=== PATIENT | female | born 1945 | race Caucasian/White ===

== ENCOUNTER 2017-01-16 06:09 | Inpatient (IN) | payer OTHER ==
[2016-10-27 13:14] VITALS: BMI 29.0
--- NOTE | 2016-10-27 13:54 | PAT Medication Instructions ---
Service Date Oct 27, 2016. Current Home Medication List Amlodipine (Norvasc), 5 MG PO QAM Atenolol (Tenormin), 100 MG PO QAM Atorvastatin (Atorvastatin Calcium), 20 MG PO HS Spironolactone (Spironolactone), 25 MG PO QAM Medication Instructions For Your Scheduled Surgery - Hold the following medications the morning of surgery: Spironolactone (Spironolactone), 25 MG PO QAM - Take the following medications the morning of surgery with a sip of water: Amlodipine (Norvasc), 5 MG PO QAM Atenolol (Tenormin), 100 MG PO QAM - Take the following medications as scheduled the night before surgery: Atorvastatin (Atorvastatin Calcium), 20 MG PO HS If you have any questions please call us at [phone] or [phone] ( [facility]) or [phone]
--- NOTE | 2016-10-27 14:34 | DIAGNOSTIC IMAGING REPORT ---
CHEST PREADMISSION(PA/LAT) CLINICAL HISTORY: PAT preoperative evaluation COMPARISON STUDY: No previous studies for comparison. FINDINGS: The bones soft tissues and hemidiaphragms are normal. The cardiomediastinal silhouette is normal. The lungs are clear. The pulmonary vasculature is normal. IMPRESSION: Negative chest. Electronically signed by: Erwin Beck M.D. 10/27/2016 2:33 PM
[2016-10-27 14:45] LABS: BASO % 0.5 %; BASO ABS # 0.04 K/uL (0-0.2); COMPLETE YES; EOS % 1.5 %; IG% 0.1 %; LYMPH % 17.1 %; LYMPH ABS # 1.46 K/uL (1.2-3.4); MEAN CELL VOLUME 94.2 fL (80-100); MEAN CORPUSCULAR HEMOGLOBIN 31.4 pg (25-34); MEAN CORPUSCULAR HGB CONC 33.3 g/dl (32-36); MONO % 10.8 %; PLATELET COUNT 200 K/uL (130-400); RED BLOOD COUNT 4.46 M/uL (4.2-5.4); WHITE BLOOD COUNT 8.53 K/uL (4.8-10.8)
[2016-10-27 14:58] LABS: PROTHROMBIN TIME (PATIENT) 10.7 SECONDS (9.0-12.0)
[2016-10-27 15:31] LABS: BUN/CREATININE RATIO 16.5 (10-20); CALCIUM 10.2 mg/dl (8.5-10.1); CREATININE 0.98 mg/dl (0.60-1.20); POTASSIUM 4.2 mmol/L (3.5-5.1)
[2016-10-30 08:30] LABS: URINE APPEARANCE CLEAR (CLEAR); URINE BILIRUBIN NEG (NEG); URINE COLOR YELLOW; URINE NITRITE NEG (NEG); URINE SPECIFIC GRAVITY 1.026 (1.000-1.030); UROBILINOGEN NEG (NEG)
[2016-10-30 08:34] LABS: MANUAL MICROSCOPIC REQUIRED? NO; REVIEW REQ? NO
[2016-12-26 12:21] LABS: BASO % 0.6 %; BASO ABS # 0.04 K/uL (0-0.2); COMPLETE YES; EOS % 1.8 %; IG% 0.1 %; LYMPH % 37.6 %; LYMPH ABS # 2.55 K/uL (1.2-3.4); MEAN CELL VOLUME 96.6 fL (80-100); MEAN CORPUSCULAR HEMOGLOBIN 32.4 pg (25-34); MEAN CORPUSCULAR HGB CONC 33.6 g/dl (32-36); MEAN PLATELET VOLUME 12.5 fL (7.4-10.4); MONO % 9.4 %; NEUT % 50.5 %; PLATELET COUNT 220 K/uL (130-400); RED BLOOD COUNT 4.35 M/uL (4.2-5.4); WHITE BLOOD COUNT 6.79 K/uL (4.8-10.8)
[2016-12-26 12:26] LABS: PROTHROMBIN TIME (PATIENT) 10.7 SECONDS (9.0-12.0)
[2016-12-26 12:56] LABS: BUN/CREATININE RATIO 16.9 (10-20); CALCIUM 9.7 mg/dl (8.5-10.1); POTASSIUM 4.1 mmol/L (3.5-5.1)
--- NOTE | 2017-01-15 14:16 | HISTORY & PHYSICAL EXAMINATION ---
DATE OF ADMISSION: 01/16/2017 CHIEF COMPLAINT: Primary osteoarthritis of the right knee. HISTORY OF PRESENT ILLNESS: Mackenzie is a pleasant 71-year-old female who has been dealing with chronic right knee pain. I did do a right knee arthroscopy on her over a year ago that helped some with her meniscal symptoms but unfortunately her arthritis continued to progress. After failing over a year of conservative treatment, she has elected to proceed with a right total knee arthroplasty. She understands the risks, benefits, alternatives to the procedure and has elected to proceed. PAST MEDICAL HISTORY: Significant for hyperlipidemia and hypertension. PAST SURGICAL HISTORY: Significant for hernia repair, a right knee arthroscopy about a year and a half ago. ALLERGIES: CORTISONE AND MOST NARCOTICS. MEDICATIONS: Include amlodipine, atenolol, spironolactone, atorvastatin. FAMILY HISTORY: Noncontributory. SOCIAL HISTORY: The patient is , rarely drinks. She lives in a single level ranch house with her and ambulates without assistance. REVIEW OF SYSTEMS: She complains of right knee pain. All other pertinent review of systems are negative. PHYSICAL EXAMINATION: GENERAL: She is awake, alert and oriented x3. She is in no apparent distress. She is very pleasant. HEENT: Pupils are equal, round and reactive to light. Extraocular motion intact. Oral mucosa is pink and moist. HEART: Regular rate per radial pulse. LUNGS: [place] symmetrically bilaterally with no audible breath sounds. ABDOMEN: Soft, nontender, nondistended. MUSCULOSKELETAL: On physical examination of the right knee, she has a slight varus deformity. All of her pain is located over the distal medial femoral condyle and along the medial joint line. She has no effusion. She has good motion from 0-125 degrees. IMAGING DATA: X-rays of the right knee do show osteoarthritis mostly involving the medial compartment of the knee with some medial-sided osteophyte formation and some joint space narrowing. IMPRESSION: Primary osteoarthritis of the right knee. PLAN: We will proceed with a Biomet Vanguard right total knee arthroplasty. Postoperatively, she will be admitted for postoperative medical management and started on a 325 mg twice a day for DVT prophylaxis. She will likely be discharged to home with the [facility] on postop day #2.
[~2017-01-16] VITALS: Ht 152.4 cm; Wt 68.5 kg
[2017-01-16] VITALS (11 sets, daily range): BP systolic 99–162; BP diastolic 60–76; PULSE 55–68; TEMP 36.3–36.7; O2SAT 97–100; Ht 152.4 cm; Wt 68.5 kg
[~2017-01-16 06:09] MED LIST: ACETAMINOPHEN 500 MG TAB PO SCH; AMLO-110 PO; ATEN50TA8 PO; CEFAZOLIN 2000 MG/60 ML D5W 60 ML IV SCH; FAMOTIDINE 20 MG TAB PO SCH; GABAPENTIN 300 MG CAP PO SCH; LACTATED RINGER'S 1000ML 1,000 ML IV SCH; LACTATED RINGER'S 1000ML 500 ML IV ONE; LPT/20 PO; ROPIVACAINE 5MG/ML 30 ML 150 MG, BUPIVACAINE/EPINEPHR 0.5% MPF 30 ML, KETOROLAC TROMETH... INFIL SCH; SPR25 PO
[2017-01-16] MEDS ORDERED: BUPIVACAINE 0.5 % 5 MG/1 ML PF 10ML VIAL ONE (06:13)
[2017-01-16] MEDS ORDERED: BUPIVACAINE 0.25% 30 ML VIAL ONE (06:14)
--- NOTE | 2017-01-16 06:36 | History & Physical Bridge Note ---
H&P Re-Evaluation Bridge Note: I have examined the patient, reviewed the History & Physical and in the interval since the performance of the History & Physical I have noted the following changes of clinical significance: No changes noted
[2017-01-16] MEDS: TRANEXAMIC ACID INJ 1,000 MG in SODIUM CHLORIDE 0.9% 100ML 100 ML IV SCH ×2 (06:58→11:33)
[2017-01-16] MEDS ORDERED: MIDAZOLAM HCL 1 MG/ML 2ML VIAL ONE (07:06)
[2017-01-16] MEDS ORDERED: FENTANYL CITRATE INJ 50 MCG/1 ML 2 ML VIAL ONE (07:06)
[2017-01-16] MEDS ORDERED: ORTHO JOINT ANESTHETIC ONE (07:16)
[2017-01-16] MEDS ORDERED: BACITRACIN 50000 UNIT VIAL ONE (07:16)
[2017-01-16] MEDS ORDERED: ONDANSETRON INJ 2 MG/ML 2 ML VIAL IV PRN ×2 (07:45→09:15)
[2017-01-16] MEDS ORDERED: EpHEDrine SULFATE INJ 50 MG/ML AMP IV PRN (07:45)
[2017-01-16] MEDS ORDERED: PHENYLEPHRINE 100MCG/ML 5ML SYR IV PRN (07:45)
[2017-01-16] MEDS ORDERED: ATROPINE SULFATE 0.1 MG/ML 5ML SYR IV PRN (07:45)
[2017-01-16] MEDS ORDERED: HYDROmorphone INJ 2 MG/ML SYR/VIAL IV PRN (07:45)
[2017-01-16] MEDS ORDERED: CISATRACURIUM BESYLATE IV SOLN 2 MG/ML 10 ML VIAL ONE (08:21)
[2017-01-16] MEDS ORDERED: LIDOCAINE HCL 2% 2 ML VIAL (20MG/ML) ONE (08:22)
[2017-01-16] MEDS ORDERED: PHENYLEPHRINE 100MCG/ML 5ML SYR ONE (08:22)
[2017-01-16] MEDS ORDERED: PROPOFOL IV EMULSION 10 MG/ML 20 ML VIAL IV ONE (08:22)
[2017-01-16] MEDS ORDERED: OXYCODONE HCL IR 5 MG TAB (IMMEDIATE RELEASE) PO PRN (09:15)
[2017-01-16] MEDS ORDERED: SILVER SULFADIAZINE 1% CR 50 GM JAR EXT PRN (09:15)
[2017-01-16] MEDS ORDERED: BISACODYL 10 MG SUPP PR PRN (09:15)
[2017-01-16] MEDS ORDERED: METOCLOPRAMIDE HCL INJ 5 MG/ML 2 ML VIAL IV PRN (09:15)
[2017-01-16] MEDS ORDERED: MAGNESIUM HYDROXIDE SUSP 30 ML UDC PO PRN (09:15)
[2017-01-16] MEDS ORDERED: SOD PHOSPHATE/SOD BIPHOSPHATE ENEMA 132 ML BTL PR PRN (09:15)
[2017-01-16] MEDS ORDERED: HYDROmorphone INJ 1 MG/ML SYR IV PRN (09:15)
--- NOTE | 2017-01-16 09:40 | OPERATIVE REPORT ---
DATE OF OPERATION: 01/16/2017 PREOPERATIVE DIAGNOSIS: Primary osteoarthritis of the right knee. POSTOPERATIVE DIAGNOSIS: Same. PROCEDURE: Right total knee arthroplasty. SURGEON: Dr. Bharat Neely. LEASES AND LAND SUPERVISOR: Nikolai Anna PA-C, whose assistance was necessary for positioning the leg and helping with retraction. ANESTHESIA: Spinal. COMPLICATIONS: None. CONDITION: Stable to PACU. INDICATIONS: Mackenzie is a pleasant 71-year-old female who has been dealing with chronic right knee pain. I did a knee arthroscopy on her over a year ago and she did better, but unfortunately her chronic pain has returned. X-rays show increase in osteoarthritis and she has elected to proceed with a total knee arthroplasty. OPERATION AND FINDINGS: On 01/16/2017 she arrived at [facility] for the above procedure. She was seen in the preoperative holding area and the operative extremity was identified and signed. She was given a preoperative antibiotic, taken back to the operating room and given a spinal anesthetic and a right adductor nerve block. The right knee was then prepped and draped in sterile fashion. Time-out was done and the patient and operative extremity was properly identified. A tourniquet was not used for the case. A midline incision was made directly over the patella. Dissection was taken down and a medial retinacular approach was used. The fat pad was excised and the medial retinaculum was released. The knee was then flexed. ACL, PCL and meniscus were then removed. A drill was sent down the center of the femoral canal followed by an intramedullary elle. Off that elle a distal femoral cutting block was placed and 9 mm was resected off the distal femur. A posterior referencing guide was used and the femur measured to be a size 62.5. Two drill holes were placed in 3 degrees of external rotation and 4-in-1 cutting block was placed. Anterior, posterior and chamfer cuts were made. A box cutting guide was attached and the box was resected for the posterior stabilizing component. The proximal tibia was then exposed. A drill was sent down the center of the tibial canal followed by an intramedullary elle. Off that elle a proximal tibial resection guide was placed and 2 mm was resected off the low medial side. The tibia measured to be a size 67.5. It was set in the appropriate rotation, drilled and punched. Time was then spent removing any remnant meniscal tissues and removing posterior osteophytes. Trial components were placed. The knee was brought through a full range of motion and felt to be stable. The patella was then everted and 8 mm was resected off the posterior patella. The patella button measured to be a size 28 and 3 peg hole drills were drilled. A trial patella was used. The knee was brought through a full range of motion and felt to be stable. Trial components were then removed. The knee was then irrigated with 3 liters of normal saline solution with bacitracin. Hemostasis was obtained with an Aquamantys. The surrounding soft tissues were injected with 100 mL of an orthopedic pain control cocktail. The tibial, femoral and patellar components were then cemented in place with Palacos-G cement. A size 10 poly seemed to give the best fit. The final poly was snapped into place and the anterior bar was locked. Two drains were placed. The extensor mechanism was closed with #2 FiberWire sutures in the superior portion of the patella followed by #[address] remainder of the way. The incision was then closed with 2-0 Vicryl, 3-0 V-Loc suture and a Prineo dressing. She was then placed in a compressive Lee wrap and taken to the postanesthesia care unit in stable condition. She tolerated the procedure well. IMPLANTS USED: I used a Biomet Vanguard right total knee arthroplasty with a 62.5 femur, a 67.5 tibial tray, a 28 mm patella and a 10 mm posterior stabilized bearing. Palacos G cement was used during the case. I attest to the content of the Intraoperative Record and any orders documented therein. Any exceptio ns are noted below.
--- NOTE | 2017-01-16 10:23 | DIAGNOSTIC IMAGING REPORT ---
RIGHT KNEE 1 OR 2 VIEWS ROUTINE CLINICAL HISTORY: Postop study. Degenerative arthritis. COMPARISON: None. DISCUSSION: There are postsurgical changes of a total right knee arthroplasty and patellar resurfacing. Overlying skin ina are evident. There is air within the soft tissues consistent with recent surgery. The femoral and tibial components appear well seated. IMPRESSION: Postsurgical changes of a total right knee arthroplasty. Electronically signed by: Mingo Garcia M.D. 01/16/2017 10:21 AM Dictated Date/Time: 01/16/2017 10:20 AM
--- NOTE | 2017-01-16 10:51 | Anesthesiology Progress Note ---
Anesthesia Post Op Note Date & Time Jan 16, 2017 at 10:51 Vital Signs Pain Intensity: 0 Vital Signs Past 12 Hours Date Time Temp Pulse Resp B/P Pulse Ox O2 Delivery O2 Flow Rate FiO2 01/16/17 10:30 60 22 117/63 97 Nasal Cannula 2 01/16/17 10:25 62 19 115/62 97 Nasal Cannula 2 01/16/17 10:15 37.4 56 16 113/62 98 Nasal Cannula 2 01/16/17 10:05 57 16 113/62 98 Nasal Cannula 2 01/16/17 09:55 58 16 114/60 97 Nasal Cannula 2 01/16/17 09:45 58 16 117/61 100 Nasal Cannula 2 01/16/17 09:37 36.7 58 16 134/79 98 Nasal Cannula 2 01/16/17 06:35 36.7 68 20 162/76 99 Room Air Notes Mental Status: alert / awake / arousable, participated in evaluation Pt Amnestic to Procedure: Yes Nausea / Vomiting: adequately controlled Pain: adequately controlled Airway Patency, RR, SpO2: stable & adequate BP & HR: stable & adequate Hydration State: stable & adequate Anesthetic Complications: no major complications apparent
[2017-01-16] MEDS: D5W AND 1/2NSS + 20MEQ KCL 1,000 ML IV SCH ×2 (11:31→21:51)
[2017-01-16] MEDS: ACETAMINOPHEN IV 1,000 MG in EMPTY BAG 0 ML IV SCH ×2 (14:22→21:52)
--- NOTE | 2017-01-16 15:53 | [facility] Post Operative Brief Note ---
Immediate Operative Summary Operative Date Jan 16, 2017. Pre-Operative Diagnosis Primary osteoarthritis of the right knee Post-Operative Diagnosis Same as pre-operative diagnosis Procedure(s) Performed Right Total Knee Arthroplasty, Cemented Surgeon Dr. Bharat Neely Treatment Plant Operator Surgeon(s) Jairo Anna PA-C Estimated Blood Loss 100ml Findings as above Specimens A: Right knee bone and tissue Complication(s) None Disposition Recovery Room / PACU
[2017-01-16] MEDS: CEFAZOLIN IV 2,000 MG in DEXTROSE 5% 50ML 50 ML IV SCH (16:17)
[2017-01-16] MEDS: SENNA 8.6 MG TAB PO SCH (21:06)
[2017-01-16] MEDS: ATORVASTATIN 20 MG TAB PO SCH (21:06)
[2017-01-16] MEDS: DOCUSATE SODIUM 100 MG CAP PO SCH (21:06)
[2017-01-16] MEDS: ASPIRIN 325 MG ECTAB PO SCH (21:06)
[2017-01-17] MEDS: CEFAZOLIN IV 2,000 MG in DEXTROSE 5% 50ML 50 ML IV SCH (00:27)
[2017-01-17 03:55] VITALS: BP 112/71; PULSE 71; TEMP 36.4; O2SAT 97
[2017-01-17] MEDS: ACETAMINOPHEN IV 1,000 MG in EMPTY BAG 0 ML IV SCH ×3 (05:56→21:42)
[2017-01-17 06:09] LABS: HEMATOCRIT 33.3 % (37-47); MEAN CELL VOLUME 92.8 fL (80-100); MEAN CORPUSCULAR HEMOGLOBIN 30.9 pg (25-34); MEAN CORPUSCULAR HGB CONC 33.3 g/dl (32-36); MEAN PLATELET VOLUME 11.8 fL (7.4-10.4); PLATELET COUNT 174 K/uL (130-400); RED BLOOD COUNT 3.59 M/uL (4.2-5.4); WHITE BLOOD COUNT 11.94 K/uL (4.8-10.8)
[2017-01-17 06:39] LABS: CALCIUM 8.6 mg/dl (8.5-10.1); CREATININE 0.99 mg/dl (0.60-1.20); POTASSIUM 3.6 mmol/L (3.5-5.1)
[2017-01-17 07:05] VITALS: BP 131/77; PULSE 63; TEMP 36.7; O2SAT 99
[2017-01-17] MEDS: D5W AND 1/2NSS + 20MEQ KCL 1,000 ML IV SCH (08:35)
[2017-01-17] MEDS: SPIRONOLACTONE 25 MG TAB PO SCH (08:36)
[2017-01-17] MEDS: DOCUSATE SODIUM 100 MG CAP PO SCH ×2 (08:36→21:41)
[2017-01-17] MEDS: ASPIRIN 325 MG ECTAB PO SCH ×2 (08:36→21:41)
[2017-01-17] MEDS: AMLODIPINE BESYLATE 5 MG TAB PO SCH (08:37)
[2017-01-17] MEDS: PANTOprazole SOD 40 MG TAB PO SCH (08:37)
[2017-01-17] MEDS: MULTIVITAMIN TAB PO SCH (08:37)
--- NOTE | 2017-01-17 09:15 | PROGRESS NOTE ---
DATE: 01/17/2017 DATE: 01/17/2017. CHIEF COMPLAINT: Status post right total knee arthroplasty postop day #1. PROGRESS: Mackenzie was seen and examined at bedside today. Overall, she is doing fairly well. She has mild pain in her knee, but not too bad. She was able to get some sleep last night. She is having a little trouble urinating completely. She has no other complaints. PHYSICAL EXAMINATION: RIGHT KNEE: The dressing is clean and dry and the drain is to suction. She has active dorsiflexion and plantarflexion of her right ankle and sensation is intact throughout. LABORATORY DATA: She has an H\T\H today of 11.1 and 33.3. Her glucose is 152. VITAL SIGNS: All stable on room air. She is voiding on her own and had 200 output of her drain. IMAGING DATA: X-rays postoperatively of the knee show the prosthesis to be in anatomic alignment without any evidence of fracture, dislocation or loosening. IMPRESSION: Status post right total knee arthroplasty postop day #1. PLAN: At this point, she is doing well. She will be on aspirin 325 mg twice a day for DVT prophylaxis. She will be on tramadol and Ofirmev for pain control because of allergies. Physical therapy will work with her today. I will see her tomorrow. Tomorrow morning the nurses can change the dressing and pull the drain and if she is doing well she can be discharged to home with [facility].
[2017-01-17] MEDS: TRAMADOL HCL 50 MG TAB PO PRN ×3 (10:49→21:41)
[2017-01-17 11:15] VITALS: BP 114/76; PULSE 64; TEMP 36.8; O2SAT 97
[2017-01-17 15:43] VITALS: BP 111/73; PULSE 69; TEMP 36.8; O2SAT 97
[2017-01-17] MEDS: ATORVASTATIN 20 MG TAB PO SCH (21:41)
[2017-01-17] MEDS: SENNA 8.6 MG TAB PO SCH (21:41)
[2017-01-17 23:06] VITALS: BP 147/78; PULSE 64; TEMP 36.4; O2SAT 95
[2017-01-18] MEDS: ACETAMINOPHEN IV 1,000 MG in EMPTY BAG 0 ML IV SCH (05:54)
[2017-01-18] MEDS: TRAMADOL HCL 50 MG TAB PO PRN ×2 (06:25→10:37)
[2017-01-18 06:43] VITALS: BP 129/79; PULSE 75; TEMP 36.9; O2SAT 97
[2017-01-18 08:02] VITALS: BP 135/82; PULSE 72; O2SAT 96
[2017-01-18] MEDS: MULTIVITAMIN TAB PO SCH (08:04)
[2017-01-18] MEDS: SPIRONOLACTONE 25 MG TAB PO SCH (08:04)
[2017-01-18] MEDS: PANTOprazole SOD 40 MG TAB PO SCH (08:04)
[2017-01-18] MEDS: DOCUSATE SODIUM 100 MG CAP PO SCH (08:04)
[2017-01-18] MEDS: AMLODIPINE BESYLATE 5 MG TAB PO SCH (08:05)
[2017-01-18] MEDS: ASPIRIN 325 MG ECTAB PO SCH (08:05)
[2017-01-18] MEDS ORDERED: ULT50X PO (09:34)
--- NOTE | 2017-01-18 09:36 | Discharge Instructions ---
Discharge Instructions Admission Reason for Admission: Right Knee Osteoarthritis, Arthralgia Of Lower Leg Discharge Discharge Diagnosis / Problem: Right Total Knee Discharge Goals Goal(s): Decrease discomfort, Improve function Activity Recommendations Activity Limitations: resume your previous activity Shower/Bathe: may shower/bathe in 3 days . Instructions / Follow-Up Instructions / Follow-Up may shower tomorrow, leave glue dressing in place Current Hospital Diet Patient's current hospital diet: Regular Diet Discharge Diet Recommended Diet: Regular Diet Procedures Procedures Performed: Right Total Knee Arthroplasty, Cemented Pending Studies Studies pending at discharge: no Medical Emergencies . Who to Call and When: Medical Emergencies: If at any time you feel your situation is an emergency, please call 911 immediately. . Non-Emergent Contact Non-Emergency issues call your: Surgeon Call Non-Emergent contact if: wound has increased drainage, wound has increased redness . "Provider Documentation" section prepared by Bharat Neely. VTE Core Measure Inpt VTE Proph given/why not?: Other Anticoagulation (Aspirin 325mg twice a day for 6 weeks)
[2017-01-18 09:44] VITALS: BP 135/82; PULSE 72; TEMP 36.9; O2SAT 96
--- NOTE | 2017-01-18 10:07 | PROGRESS NOTE ---
DATE: 01/18/2017 DATE: 01/18/2017. CHIEF COMPLAINT: Status post right total knee arthroplasty postop day #2. PROGRESS: Mackenzie was seen and examined at bedside today. Overall, she is doing very well. She does not have much pain in the knee. She has been ambulating very well with physical therapy. Her pain is controlled. She has no complaints. PHYSICAL EXAMINATION: RIGHT KNEE: The dressing has been changed and drain has been pulled. The Prineo dressing is intact. She is neurovascularly intact. IMPRESSION: Status post right total knee arthroplasty postop day #2. PLAN: At this point, she is doing very well. She is ambulating well with physical therapy. The nursing staff has already changed the dressing and pulled the drain. I am going to discharge her to home later this morning.
--- NOTE | 2017-01-18 13:37 | DISCHARGE SUMMARY ---
DISCHARGE DIAGNOSIS: Primary osteoarthritis of the right knee. PROCEDURE: Right total knee arthroplasty on 01/16/[address] Bharat Neely. DISCHARGE INSTRUCTIONS: 1. Tramadol 50 mg every 4 hours as needed for pain. 2. Norvasc 5 mg daily. 3. Tenormin 100 mg daily. 4. Atorvastatin 20 mg daily. 5. Spironolactone 25 mg daily. 6. Aspirin 325 mg twice a day for 6 weeks. 7. Knee high YEIMI hose stockings for 6 weeks. 8. Follow up with Dr. Neely in 2 weeks. 9. Call the office of Dr. Neely with any questions or concerns. HOSPITAL COURSE: Mackenzie is a pleasant 71-year-old female who presented to my office with complaints of right knee pain. X-rays and clinical examination were diagnostic for primary osteoarthritis of the right knee. After failing extensive conservative treatment including knee arthroscopy, she elected to proceed with a right total knee arthroplasty. On 01/18/2017, she arrived at [facility] for the above procedure. She was seen in the preoperative holding area and the operative extremity was identified and signed. She was given a preoperative antibiotic and a spinal anesthetic. She was taken back to the operating room and underwent a right total knee arthroplasty without complications. Postoperatively, she was placed in a compressive dressing and discharged to general orthopedic floors. Her hospital course was uneventful. On postop day #1, her H\T\H was stable at 11.1 and 33.3. She ambulated well with physical therapy and her pain was well controlled. On postop day #2, the dressing was changed, the drains were pulled. She continued to do well with therapy and she was subsequently discharged to home with the above instructions.
[2017-02-10] MEDS ORDERED: SULF800T23 PO (09:43)
[2017-02-10] MEDS ORDERED: ONDA4TAB46 PO (09:43)
[2017-02-10] MEDS ORDERED: CEPH500C2 PO (09:43)
== END 2017-01-18 11:10 | disposition home health service (06) | DRG 470 ==
LOC: ENRESERVDT → ENRESERVTM → C.ACU 06:09 → C.3E 06:20
PROVIDERS: ADMIT Orthopaedic Surgery; ATTEND Orthopaedic Surgery
PROC: 0SRC0J9 Replacement of Right Knee Joint with Synthetic Substitute, Cemented, Open Approach (ICD-10-PCS; principal; 2017-01-16 08:00)
DX: M17.11 Unilateral primary osteoarthritis, right knee (principal); E78.5 Hyperlipidemia, unspecified; I10 Essential (primary) hypertension; Z79.899 Other long term (current) drug therapy; Z98.890 Other specified postprocedural states

== ENCOUNTER → 2017-06-15 | Outpatient (CLI) | payer OTHER ==
[~2017-06-15] MED LIST changes: -ACETAMINOPHEN 500 MG TAB PO SCH; -CEFAZOLIN 2000 MG/60 ML D5W 60 ML IV SCH; -FAMOTIDINE 20 MG TAB PO SCH; -GABAPENTIN 300 MG CAP PO SCH; -LACTATED RINGER'S 1000ML 1,000 ML IV SCH; -LACTATED RINGER'S 1000ML 500 ML IV ONE; +ONDA4TAB46 PO; -ROPIVACAINE 5MG/ML 30 ML 150 MG, BUPIVACAINE/EPINEPHR 0.5% MPF 30 ML, KETOROLAC TROMETH... INFIL SCH; +ULT50X PO
[2017-06-15 12:15] LABS: BASO % 0.3 %; BASO ABS # 0.02 K/uL (0-0.2); COMPLETE YES; EOS % 2.2 %; HEMATOCRIT 38.6 % (37-47); IG% 0.3 %; LYMPH % 32.6 %; LYMPH ABS # 2.54 K/uL (1.2-3.4); MEAN CELL VOLUME 91.7 fL (80-100); MEAN CORPUSCULAR HEMOGLOBIN 28.7 pg (25-34); MEAN CORPUSCULAR HGB CONC 31.3 g/dl (32-36); MEAN PLATELET VOLUME 11.9 fL (7.4-10.4); MONO % 8.5 %; NEUT % 56.1 %; PLATELET COUNT 257 K/uL (130-400); RED BLOOD COUNT 4.21 M/uL (4.2-5.4)
[2017-06-15 12:32] LABS: ALT/SGPT 26 U/L (12-78); BLOOD UREA NITROGEN 24 mg/dl (7-18); BUN/CREATININE RATIO 20.2 (10-20); CALCIUM 9.9 mg/dl (8.5-10.1); CARBON DIOXIDE 29 mmol/L (21-32); CHLORIDE 105 mmol/L (98-107); CHOLESTEROL 173 mg/dl (0-200); GLUCOSE 84 mg/dl (70-99); POTASSIUM 4.6 mmol/L (3.5-5.1); SODIUM 139 mmol/L (136-145); TRIGLYCERIDES 147 mg/dl (0-150); VERY LOW DENSITY LIPOPROT CALC 29 mg/dl
[2017-06-15 12:43] LABS: ALB/GLOB RATIO 1.1 (0.9-2); ALKALINE PHOSPHATASE 79 U/L (45-117); AST/SGOT 19 U/L (15-37); CHOLESTEROL/HDL RATIO 3.4; HDL CHOLESTEROL 51 mg/dl; LDL CHOLESTEROL CALCULATED 93 mg/dl
--- NOTE | 2017-06-19 12:53 | CODING QUERY MEDICAL NECESSITY ---
SUPPORTING DIAGNOSIS NEEDED Dr. Meredith, A supporting diagnosis is required for the test/procedure performed on this patient in order for us to be reimbursed by the patient's insurance. Please provide a supporting diagnosis for the following test/procedure listed below next to the test name along with your signature. *If there is no additional diagnosis for this patient that would support the following test/procedure please document that below next to the test/procedure. Test(s)/Procedure(s) that require a supporting diagnosis: * ([id number]) VITAMIN D ASSAY DIAGNOSIS: DATE OF SERVICE: 06/15/17 Provider Signature: Date: Thank you Giacomo Farrell [facility] Information Management Once completed, please kindly fax back to [phone] For questions please call [phone]
== END | disposition home or self-care (01) ==
LOC: C.LAB1850 10:10
PROVIDERS: ATTEND Internal Medicine Geriatric Medicine
DX: Z00.00 Encounter for general adult medical examination without abnormal findings (principal); I10 Essential (primary) hypertension; E78.5 Hyperlipidemia, unspecified; R25.1 Tremor, unspecified; M19.90 Unspecified osteoarthritis, unspecified site; R42 Dizziness and giddiness

== ENCOUNTER → 2017-10-06 | Outpatient (CLI) | payer OTHER ==
[2017-10-06 12:22] LABS: BASO % 0.5 %; BASO ABS # 0.03 K/uL (0-0.2); COMPLETE YES; HEMATOCRIT 39.9 % (37-47); IG% 0.2 %; LYMPH % 32.3 %; LYMPH ABS # 1.92 K/uL (1.2-3.4); MEAN CELL VOLUME 90.9 fL (80-100); MEAN CORPUSCULAR HEMOGLOBIN 29.2 pg (25-34); MEAN CORPUSCULAR HGB CONC 32.1 g/dl (32-36); MEAN PLATELET VOLUME 12.1 fL (7.4-10.4); MONO % 10.4 %; NEUT % 54.6 %; PLATELET COUNT 253 K/uL (130-400); RED BLOOD COUNT 4.39 M/uL (4.2-5.4); WHITE BLOOD COUNT 5.95 K/uL (4.8-10.8)
[2017-10-06 12:23] LABS: BLOOD UREA NITROGEN 18 mg/dl (7-18); BUN/CREATININE RATIO 18.2 (10-20); CALCIUM 10.2 mg/dl (8.5-10.1); CARBON DIOXIDE 28 mmol/L (21-32); CHLORIDE 103 mmol/L (98-107); CREATININE 1.01 mg/dl (0.60-1.20); GLUCOSE 102 mg/dl (70-99); POTASSIUM 4.5 mmol/L (3.5-5.1); SODIUM 137 mmol/L (136-145)
[2017-10-06 12:37] LABS: URINE PROTIEN/CREAT RATIO 0.1 (0-0.2); URINE TOTAL PROTEIN 6.9 mg/dl (0-11.9)
== END | disposition home or self-care (01) ==
LOC: C.LAB1850 09:47
PROVIDERS: ATTEND Internal Medicine Geriatric Medicine
DX: I12.9 Hypertensive chronic kidney disease with stage 1 through stage 4 chronic kidney disease, or unspecified chronic kidney disease (principal); E78.5 Hyperlipidemia, unspecified; N18.3 Chronic kidney disease, stage 3 (moderate)

== ENCOUNTER → 2017-10-06 | Outpatient (CLI) | payer OTHER ==
--- NOTE | 2017-10-06 14:31 | MAMMOGRAPHY REPORT ---
BILATERAL DIGITAL SCREENING MAMMOGRAM TOMOSYNTHESIS WITH CAD: 10/06/2017 CLINICAL HISTORY: Routine screening. Patient has no complaints. TECHNIQUE: Breast tomosynthesis in addition to standard 2D mammography was performed. Current study was also evaluated with a Computer Aided Detection (CAD) system. COMPARISON: Comparison is made to exams dated: 10/02/2016 mammogram, 09/28/2015 mammogram, 06/21/2014 mammogram, 06/20/2013 mammogram, 05/03/2012 mammogram, and 05/02/2011 mammogram - [facility] enter. BREAST COMPOSITION: The tissue of both breasts is almost entirely fatty. FINDINGS: There is a stable intramammary lymph node in the right upper outer quadrant posteriorly, un changed in size dating back to at least 04/30/2009. No new suspicious mass, architectural distortion or cluster of suspicious microcalcifications is seen. IMPRESSION: ACR BI-RADS CATEGORY 1: NEGATIVE There is no mammographic evidence of malignancy. A 1 year screening mammogram is recommended. The pa tient will receive written notification of the results. Approximately 10% of breast cancers are not detected with mammography. A negative mammographic report should not delay biopsy if a clinically suggestive mass is present. Jessica Desai M.D. ay/:10/06/2017 09:55:27 Computer Aided Design Operator: Galilea Enriquez M, [facility] letter sent: Normal 1/2 BI-RADS Code: ACR BI-RADS Category 1: Negative
== END | disposition home or self-care (01) ==
LOC: C.MAMM 08:59
PROVIDERS: ATTEND Internal Medicine Geriatric Medicine
DX: Z12.31 Encounter for screening mammogram for malignant neoplasm of breast (principal)

== ENCOUNTER → 2017-11-10 | Outpatient (CLI) | payer OTHER ==
[~2017-11-10] MED LIST changes: -AMLO-110 PO; +AMLO5TAB3 PO; -LPT/20 PO; +LPT20 PO; +SPIR25TA6 PO; -SPR25 PO
== END | disposition home or self-care (01) ==
LOC: C.MAMM 07:44
PROVIDERS: ATTEND Internal Medicine Geriatric Medicine
DX: M85.88 Other specified disorders of bone density and structure, other site (principal); M85.851 Other specified disorders of bone density and structure, right thigh; M85.852 Other specified disorders of bone density and structure, left thigh; M19.90 Unspecified osteoarthritis, unspecified site; M54.16 Radiculopathy, lumbar region; E55.9 Vitamin D deficiency, unspecified